=== PATIENT | male | born 1970 | race Caucasian/White ===

== ENCOUNTER 2021-02-03 15:25 | Emergency (ER) | payer OTHER ==
[~2021-02-03] VITALS: Ht 175.3 cm; Wt 80.7 kg
[2021-02-03] MEDS ORDERED: TENORMIN50 M1 (15:42)
== END 2021-02-03 18:13 | disposition home or self-care (01) ==
LOC: ER 15:25
DX: R07.89 Other chest pain (principal); L50.9 Urticaria, unspecified; I10 Essential (primary) hypertension